=== PATIENT | female | born 1955 ===

== ENCOUNTER 2017-05-13 11:13 | Emergency (ER) | payer OTHER ==
[2017-05-13 11:13] VITALS: BMI 28.3
[2017-05-13 11:55] VITALS: PULSE 92; RESP 20; O2SAT 95
--- NOTE | 2017-05-13 13:14 | C.PDOC ---
History Of Present Illness 61 y/o female presents to the ER complaining of fever, chills, non-productive cough, and body aches which have been present for 2 days. Patient denies having abdominal pain, nausea, vomiting, diarrhea, and dysuria.Patient does not have any other complaints. Time Seen by Provider: 05/13/17 12:05 Chief Complaint (Nursing): Flu-like Symptoms History Per: Patient History/Exam Limitations: no limitations Onset/Duration Of Symptoms: Days Current Symptoms Are (Timing): Still Present Associated Symptoms: Fever, Chills, Cough. denies: Nausea, Vomiting, Diarrhea Severity: Moderate Past Medical History Reviewed: Historical Data, Nursing Documentation, Vital Signs Vital Signs: Last Vital Signs Temp 99.7 F H 05/13/17 14:39 Pulse 92 H 05/13/17 11:53 Resp 20 05/13/17 11:53 BP 149/84 05/13/17 14:39 Pulse Ox 95 05/13/17 16:24 - Medical History PMH: HTN, Hypercholesterolemia Surgical History: No Surg Hx Family History: States: No Known Family Hx - Social History Hx Alcohol Use: No Hx Substance Use: No - Immunization History Hx Tetanus Toxoid Vaccination: No Hx Influenza Vaccination: No Hx Pneumococcal Vaccination: No Review Of Systems Except As Marked, All Systems Reviewed And Found Negative. Constitutional: Positive for: Fever, Chills, Malaise Respiratory: Positive for: Cough Gastrointestinal: Negative for: Nausea, Vomiting, Abdominal Pain, Diarrhea Genitourinary: Negative for: Dysuria Physical Exam - Physical Exam Appears: Non-toxic, No Acute Distress, Other (uncomfortable) Skin: Normal Color, Warm Head: Atraumatic, Normacephalic Eye(s): bilateral: Normal Inspection, PERRL Ear(s): Bilateral: Normal Nose: Normal Oral Mucosa: Moist Throat: Erythema (pharyngeal erythema), No Exudate, Other (no tonsillar swelling ) Neck: Supple Chest: Symmetrical Cardiovascular: Rhythm Regular Respiratory: Normal Breath Sounds, No Accessory Muscle Use, No Rales, No Rhonchi , No Wheezing Gastrointestinal/Abdominal: Normal Exam, Soft, No Tenderness Extremity: Normal ROM Neurological/Psych: Oriented x3, Normal Speech, Normal Cognition, Normal Motor, Normal Sensation ED Course And Treatment O2 Sat by Pulse Oximetry: 95 (RA) Pulse Ox Interpretation: Normal Progress Note: Patient given Motrin, Tamiflu, Tessalon Perles, and Tylenol. Patient given prescriptions for Tessalon Perles, Naproxen, and Tamiflu. Patient discharged and told to follow up with PCP. Disposition Counseled Patient/Family Regarding: Diagnosis, Need For Followup, Rx Given - Disposition Referrals: [facility] [Outside] Disposition: HOME/ ROUTINE Disposition Time: 13:10 Condition: STABLE Additional Instructions: SEGUIMIENTO CON GELLER MDICO / CLNICA EN 1-2 MORENO USE MEDICAMENTOS SEGN LO INDICADO MARCY ABUNDANTE LQUIDO Y DESCANSE REGRESE AL NAA DE EMERGENCIA SI LOS SNTOMAS EMPEORAN FOLLOW UP WITH YOUR DOCTOR/CLINIC IN 1-2 DAYS USE MEDICATIONS DIRECTED DRINK PLENTY OF FLUIDS AND GET REST RETURN TO EMERGENCY ROOM IF SYMPTOMS WORSEN Prescriptions: Benzonatate [Tessalon Perles] 100 mg PO BID PRN #15 sgl PRN Reason: Cough Naproxen 375 mg PO BID PRN #20 tablet PRN Reason: pain Oseltamivir Phosphate [Tamiflu] 75 mg PO BID #10 capsule Instructions: Viral Syndrome (ED) Forms: [employer] (Japanese), Gym Excuse, Work Excuse Print Language: SLOVAK - Clinical Impression Clinical Impression: Viral syndrome - Scribe Statement The provider has reviewed the documentation as recorded by the Basilioibe [place] Provider Attestation: All medical record entries made by the Basilioibe were at my direction and personally dictated by me. I have reviewed the chart and agree that the record accurately reflects my personal performance of the history, physical exam, medical decision making, and the department course for this patient. I have also personally directed, reviewed, and agree with the discharge instructions and disposition.
[2017-05-13 14:40] VITALS: BP 149/84; TEMP 99.7
== END 2017-05-13 14:39 | disposition home or self-care (01) ==
LOC: C.ER 11:13
DX: B34.9 Viral infection, unspecified (principal)